=== PATIENT | female | born 1990 ===

== ENCOUNTER → 2024-04-25 | Outpatient (CLI) | payer BC | LOC: LAB SHORT 09:25 → LAB 09:25 | DX: R30.0 Dysuria (principal) | CPT/HCPCS: 87086 ==

== ENCOUNTER → 2024-06-12 | Outpatient (CLI) | payer BC ==
[2024-06-15 10:59] LABS: HPV HIGH RISK BY TMA Not Detected; HPV SOURCE Not Provided
== END ==
LOC: LAB 08:37 → LAB SHORT 08:37
PROVIDERS: Physician Assistant
DX: Z01.419 Encounter for gynecological examination (general) (routine) without abnormal findings (principal)
CPT/HCPCS: 87624; G0123